=== PATIENT | female | born 1940 | race Caucasian/White ===

== ENCOUNTER → 2021-06-12 | Outpatient (CLI) | payer OTHER ==
[~2021-06-12] MED LIST: ALBUTEROL1.25 MG/3 INH; ALEVE220 M1 PO; ARTHRITIS PAIN650 M1 PO; ASPIRIN CHEWABL81 MG PO; B COMPLEX1 EACH PO; CALCIUM 600 +1 EAC6 PO; FLONASE 0.05% N16 GM; GLUCOPHAGE XR500 MG PO; IRON PO; LASIX40 MG PO; LIPITOR TAB 2020 MG PO; LISINOPRIL40 MG PO; MULTIVITAMINS1 EAC1 PO; NORCO 5-325 TA1 EACH PO; NORVASC 5 MG TAB5 MG PO; OXYGEN; TENORMIN 50 MG50 MG PO; VALTREX1000 MG PO; VITAMIN D250000 UNIT PO; VITAMIN D32000 UNI1 PO; WOMEN'S DAILY1 EAC1 PO; ZANTAC150 MG PO; ZOLOFT50 MG PO
== END ==
LOC: MAMO 13:27
DX: Z12.31 Encounter for screening mammogram for malignant neoplasm of breast (principal)
CPT/HCPCS: 77063; 77067